=== PATIENT | female | born 1980 | race Caucasian/White ===

== ENCOUNTER 2021-01-28 17:57 | Emergency (ER) | payer OTHER ==
[~2021-01-28 17:57] MED LIST: IBUPROFEN600 MG PO; LEVOFLOXACIN250 MG PO; ZOFRAN ODT 4 MG4 MG SL
[2021-01-28 23:26] LABS: HEMOGLOBIN 13.3 gm/dl (12.3-15.3); RED BLOOD COUNT 4.28 M/UL (4.00-5.10); WHITE BLOOD COUNT 7.1 K/UL (4.5-11.0)
[2021-01-29 00:03] LABS: BUN/CREATININE RATIO 12 (0-10)
== END 2021-01-29 00:40 | disposition home or self-care (01) ==
LOC: ER1 17:57
PROVIDERS: Family Medicine
DX: R00.2 Palpitations (principal)
CPT/HCPCS: 70450; 71046; 80053; 82550; 82553; 83874; 84439; 84443; 84484; 85025; 93005; 99285

== ENCOUNTER 2021-04-09 14:27 | Emergency (ER) | payer OTHER ==
[~2021-04-09] VITALS: Ht 170.2 cm; Wt 145.1 kg
== END 2021-04-09 16:38 | disposition home or self-care (01) ==
LOC: ER1 14:27
DX: Z23 Encounter for immunization (principal); U07.1 COVID-19; Z90.710 Acquired absence of both cervix and uterus; Z79.1 Long term (current) use of non-steroidal anti-inflammatories (NSAID); Z88.2 Allergy status to sulfonamides
CPT/HCPCS: 99283; M0243